=== PATIENT | female | born 1965 | race Caucasian/White ===

== ENCOUNTER → 2016-09-28 10:30 | Outpatient (CLI) | payer MEDICAID ==
[2013-12-09 14:36] VITALS: BMI 17.3
[~2016-09-28 10:30] MED LIST: ACETAMINOPHEN325 MG PO; CARAFATE1 G OR; CELEXA10 MG PO; FLAGYL500 MG PO; IBUPROFEN800 MG PO; PREMARIN0.625 MG PO; PROTONIX20 MG PO; ZOFRAN4 MG PO
== END | disposition home or self-care (01) ==
LOC: D.CT 10:30
DX: R41.82 Altered mental status, unspecified (principal); R41.3 Other amnesia

== ENCOUNTER → 2018-01-23 12:11 | Outpatient (CLI) | payer MEDICAID ==
[2013-12-09 14:36] VITALS: BMI 17.3
== END | disposition home or self-care (01) ==
LOC: D.MRI 12:11
DX: R51 Headache (principal)